=== PATIENT | male | born 1950 | race American Indian/Alaskan Native ===

== ENCOUNTER 2016-08-13 09:25 | Outpatient (CLI) | payer OTHER ==
--- NOTE | 2016-08-14 08:26 | Cat Scan Report ---
CT OF THE ABDOMEN AND PELVIS WITHOUT CONTRAST HISTORY: Prostate cancer, evaluate for metastasis. TECHNIQUE: Helical CT without contrast. Sagittal and coronal reformatted images. FINDINGS: No CAT scan for comparison at this facility. Correlation is made with a bone scan performed the same day. The lung bases are clear. Heart size is normal. There is moderate to large ascites throughout the abdomen. A peritoneal dialysis catheter terminates in the right lower quadrant just anterior to the cecum. The kidneys are mildly atrophic measuring 8 cm on the right and 9 cm on the left. There are 3 cysts in the left kidney ranging from 1-3 cm. The ureters and bladder are unremarkable. Normal adrenal glands. The prostate gland measures 4.9 cm in diameter. There is no evidence for pelvic, abdominal or retroperitoneal adenopathy on noncontrast CT The liver, biliary system, pancreas, spleen and and bowel loops are unremarkable. The appendix is not confidently identified. No lytic or blastic bony lesions are identified. Mild lumbar spondylosis is noted. IMPRESSION: No evidence for metastatic disease to the abdomen or pelvis. Moderate to large ascites. A peritoneal catheter is identified. Mild bilateral renal atrophy. Left renal cysts. No evidence for adenopathy, visceral mass or acute process.
--- NOTE | 2016-08-14 08:27 | Nuclear Medicine Report ---
BONE SCAN: History: Prostate cancer. Comparison: Noncontrast CT abdomen and pelvis performed the same day. After injection of isotope, gamma camera imaging of the bony system was done. There is a normal uptake of isotope throughout the bony structures without areas of significantly increased or decreased uptake. Minor focal uptake at L2-3-4 level corresponds with osteophytic spurring on CT. Normal uptake in the urinary system is seen. IMPRESSION: Negative bone scan.
== END 2016-08-13 09:26 | disposition home or self-care (01) ==
LOC: NM 09:25
PROVIDERS: ATTEND Urology
DX: C61 Malignant neoplasm of prostate (principal); N28.1 Cyst of kidney, acquired; N26.1 Atrophy of kidney (terminal); R18.8 Other ascites; M47.896 Other spondylosis, lumbar region; M89.8X9 Other specified disorders of bone, unspecified site
CPT/HCPCS: 74176; 78306; A9503